=== PATIENT | male | born 1995 | race African-American/Black ===

== ENCOUNTER 2020-08-24 06:45 | Emergency (ER) | payer BC, MEDICAID ==
[~2020-08-24] VITALS: Ht 165.1 cm; Wt 72.0 kg
[2020-08-24] MEDS ORDERED: IPRATROPIUM BROMIDE (0.02%) 0.5MG/2.5ML NEB HHN STA (07:50)
[2020-08-24] MEDS ORDERED: PREDNISONE 20MG TABLET PO STA (07:50)
[2020-08-24] MEDS ORDERED: ALBUTEROL (0.083%) 2.5MG/3ML NEB HHN STA (07:50)
[2020-08-24 09:36] VITALS: BP 124/60
== END 2020-08-24 09:37 | disposition home or self-care (01) ==
LOC: ER 07:31
DX: J45.901 Unspecified asthma with (acute) exacerbation (principal); F12.10 Cannabis abuse, uncomplicated; Z20.828 Contact with and (suspected) exposure to other viral communicable diseases
CPT/HCPCS: 71045; 87635; 93005; 94644; 99285; J7512; Z7610

== ENCOUNTER 2021-04-02 07:26 | Emergency (ER) | payer BC, MEDICAID ==
[~2021-04-02] VITALS: Ht 165.1 cm; Wt 63.0 kg
[2021-04-02] MEDS ORDERED: ASPIRIN 81MG TABLET PO ONE (08:00)
[2021-04-02 08:19] LABS: CLARITY URINE CLEAR (CLEAR); COLOR URINE YELLOW (YELLOW); KETONES URINE NEGATIVE (NEGATIVE); LEUKOCYTE ESTERASE URINE NEGATIVE (NEGATIVE); NITRITE URINE NEGATIVE (NEGATIVE); OCCULT BLOOD URINE NEGATIVE (NEGATIVE); PH URINE 6.5 (4.5-8.0); PROTEIN URINE NEGATIVE (NEGATIVE); SPECIFIC GRAVITY URINE 1.009 (1.005-1.030)
[2021-04-02 08:27] LABS: CHLORIDE 108 mEq/L (98-107)
[2021-04-02 08:28] LABS: BASOPHILS % 0.4 % (0.0-2.0); HEMATOCRIT. 49.7 % (42.0-52.0); HEMOGLOBIN. 17.2 g/dL (14.0-18.0); MEAN CORPUSCULAR HEMOGLOBIN 29.7 pg (28.0-32.0); MEAN CORPUSCULAR VOLUME 86.1 fL (80.0-94.0); MEAN PLATELET VOLUME 7.4 fl (7.4-10.4); NEUTROPHILS % 70.6 % (40.0-76.0); PLATELET 234 x1000/uL (130-400); RED BLOOD CELL COUNT 5.77 mill/uL (4.7-6.1); RED CELL DISTRIBUTION WIDTH 14.1 % (11.6-14.6)
[2021-04-02 08:39] LABS: *AMPHETAMINES SCREEN URINE NEGATIVE (NEGATIVE); *BARBITURATES SCREEN URINE NEGATIVE (NEGATIVE); *BENZODIAZEPINES SCREEN URINE NEGATIVE (NEGATIVE); CANNABINOID URINE SCREEN PRESUMTIVE POSITIVE (NEGATIVE); METHADONE URINE SCREEN NEGATIVE (NEGATIVE); OPIATES URINE SCREEN NEGATIVE (NEGATIVE); PHENCYCLIDINE URINE SCREEN NEGATIVE (NEGATIVE)
[2021-04-02 08:40] LABS: *COCAINE SCREEN URINE NEGATIVE (NEGATIVE)
[2021-04-02] MEDS ORDERED: IBUP-2029 MT (10:05)
[2021-04-02] MEDS ORDERED: IPRATROPIUM/ALBUTEROL 0.5-3(2.5)MG/3ML NEB HHN ONE (11:30)
[2021-04-02 11:41] VITALS: BP 115/76
== END 2021-04-02 11:47 | disposition home or self-care (01) ==
LOC: ER 07:26
DX: R07.89 Other chest pain (principal); J45.909 Unspecified asthma, uncomplicated
CPT/HCPCS: 36415; 71045; 80053; 80305; 81003; 83880; 84484; 85025; 93005; 99285; Z7610

== ENCOUNTER 2022-04-08 09:14 | Emergency (ER) | payer MEDICAID, OTHER ==
[~2022-04-08] VITALS: Ht 165.1 cm; Wt 67.0 kg
[~2022-04-08 09:14] MED LIST: IBUP-2029 MT
[2022-04-08 09:17] VITALS: BP 126/78
[2022-04-08] MEDS ORDERED: IBUPROFEN 800MG TABLET PO ONE (09:45)
[2022-04-08 10:54] LABS: BASOPHILS % 0.6 % (0.0-2.0); EOSINOPHILS % 1.3 % (0.0-5.0); HEMATOCRIT. 51.9 % (42.0-52.0); HEMOGLOBIN. 17.6 g/dL (14.0-18.0); LYMPHOCYTES % 27.9 % (20.0-50.0); MEAN CORPUSCULAR HEMOGLOBIN 28.9 pg (28.0-32.0); MEAN CORPUSCULAR VOLUME 85.2 fL (80.0-94.0); MEAN PLATELET VOLUME 7.3 fl (7.4-10.4); MONOCYTES % 10.1 % (2.0-8.0); NEUTROPHILS % 60.1 % (40.0-76.0); PLATELET 245 x1000/uL (130-400); RED BLOOD CELL COUNT 6.09 mill/uL (4.7-6.1); RED CELL DISTRIBUTION WIDTH 14.8 % (11.6-14.6)
[2022-04-08 11:44] LABS: CHLORIDE 105 mEq/L (98-107)
== END 2022-04-08 12:49 | disposition home or self-care (01) ==
LOC: ER 09:14
DX: R07.89 Other chest pain (principal); J45.909 Unspecified asthma, uncomplicated; R51.9 Headache, unspecified
CPT/HCPCS: 36415; 71045; 80053; 84484; 85025; 93005; 99285